=== PATIENT | male | born 1980 | race American Indian/Alaskan Native ===

== ENCOUNTER 2017-10-21 16:56 | Emergency (ER) | payer OTHER ==
[2017-10-21] MEDS ORDERED: ATIVAN IV ONE (17:52)
[2017-10-21] MEDS ORDERED: NACL 0.9% 1000 ML 1,000 ML IV ONE (17:52)
--- NOTE | 2017-10-21 17:52 | Emergency Department Report ---
ED General Adult HPI - General Chief complaint: Seizure Stated complaint: SEIZURE Time Seen by Provider: 10/21/17 17:40 Source: patient Mode of arrival: Ambulatory Limitations: No Limitations - History of Present Illness Initial comments: Patient denies substance abuse denies alcohol denies past medical history, has been having intermittent truncal jerking spells, he says he thinks he can stop them when they start, he has had no loss of consciousness. He has no headache no stiff neck no fever no extremity complaints no jerking no gait problems, he is here for evaluation of intermittent truncal jerking spells off-and-on for a while -: Gradual, days(s), unknown Severity scale (0 -10): 0 Associated Symptoms: denies other symptoms. denies: confusion, chest pain, cough, diaphoresis, fever/chills, headaches, loss of appetite, malaise, nausea/ vomiting, rash, seizure, shortness of breath, syncope, weakness - Related Data Previous Rx's Medication Instructions Recorded Last Taken Type HYDROcodone/APAP 5-325 [[place] 1 each PO Q8HR PRN #14 tablet 07/30/14 Unknown Rx 5-325 mg TAB] Allergies Allergy/AdvReac Type Severity Reaction Status Date / Time diphenhydramine HCl Allergy Hives Verified 10/21/17 17:00 [From [facility]] ED Review of Systems ROS: Stated complaint: SEIZURE Other details as noted in HPI Comment: All other systems reviewed and negative Constitutional: denies: diaphoresis, fever, malaise Eyes: denies: eye discharge, vision change ENT: denies: dental pain, hearing loss, epistaxis Respiratory: denies: shortness of breath, SOB with exertion, SOB at rest, stridor Cardiovascular: denies: chest pain, palpitations, dyspnea on exertion, orthopnea , edema, syncope, paroxysmal nocturnal dyspnea Gastrointestinal: denies: abdominal pain, nausea, vomiting, diarrhea, constipation, hematochezia Neurological: denies: headache, weakness, numbness, paresthesias, confusion, abnormal gait, vertigo Psychiatric: denies: auditory hallucinations, visual hallucinations ED Past Medical Hx - Past Medical History Previous Medical History?: No Additional medical history: Chronic back pain - Surgical History Additional Surgical History: surgery on right middle finger. - Social History Smoking Status: Never Smoker - Medications Home Medications: Home Medications Medication Instructions Recorded Confirmed Last Taken Type HYDROcodone/APAP 5-325 [[place] 1 each PO Q8HR PRN #14 tablet 07/30/14 Unknown Rx 5-325 mg TAB] ED Physical Exam - General Limitations: No Limitations General appearance: alert, in no apparent distress, anxious - Head Head exam: Present: atraumatic, normocephalic - Eye Eye exam: Present: PERRL, EOMI - ENT ENT exam: Present: normal exam, normal orophraynx - Neck Neck exam: Present: normal inspection. Absent: tenderness, meningismus - Respiratory Respiratory exam: Present: normal lung sounds bilaterally. Absent: respiratory distress, wheezes, rales, rhonchi, stridor - Cardiovascular Cardiovascular Exam: Present: regular rate, normal rhythm - GI/Abdominal GI/Abdominal exam: Present: soft. Absent: distended, tenderness, guarding, rebound, rigid, pulsatile mass - Extremities Exam Extremities exam: Present: normal inspection. Absent: full ROM, tenderness, normal capillary refill, pedal edema, joint swelling, calf tenderness - Back Exam Back exam: Present: normal inspection. Absent: CVA tenderness (R), CVA tenderness (L), muscle spasm, paraspinal tenderness, vertebral tenderness - Neurological Exam Neurological exam: Present: alert, oriented X3, CN II-XII intact, normal gait, other (possible myoclonus). Absent: motor sensory deficit - Psychiatric Psychiatric exam: Present: normal affect - Skin Skin exam: Present: warm ED Course Vital Signs 10/21/17 10/21/17 10/21/17 17:01 18:00 18:15 Temperature 98.6 F Pulse Rate 95 H 88 Respiratory 16 16 16 Rate Blood Pressure 150/104 Blood Pressure 142/87 [Right] O2 Sat by Pulse 95 95 96 Oximetry 10/21/17 19:30 Temperature 98 F Pulse Rate 78 Respiratory 16 Rate Blood Pressure Blood Pressure 134/84 [Right] O2 Sat by Pulse 100 Oximetry ED Medical Decision Making - Lab Data Result diagrams: 10/21/17 18:40 10/21/17 18:40 - Radiology Data Radiology results: report reviewed - Medical Decision Making 29-year-old male sometime jerking spell no evidence of seizure patient has seems to have voluntary and no loss of consciousness, he may be having some type of seizure however he does not have loss consciousness or airway problems no exam is normal CT head is normal laboratory studies were unremarkable he will be referred for outpatient EEG and family DrAbe kim [facility] is outpatient follow Critical care attestation.: If time is entered above; I have spent that time in minutes in the direct care of this critically ill patient, excluding procedure time. ED Disposition Clinical Impression: Tremor Disposition: DC-01 TO HOME OR SELFCARE Is pt being admited?: No Condition: Stable Instructions: Parkinson's Disease (ED) Additional Instructions: He'll need to see her regular doctor in follow-up you need to see a neurologist return immediately if new alarming symptoms or call 911 see the doctor listed Referrals: PRIMARY MD BHAVANI [Primary Care Provider] - 3-5 Days JANICE GARSIA MD [Staff Physician] - 3-5 Days Time of Disposition: 22:57
[2017-10-21 18:59] LABS: Basophils % (Auto) 0.4 % (0.0-1.8); Eosinophils # (Auto) 0.1 K/mm3 (0.0-0.4); Eosinophils % (Auto) 1.8 % (0.0-4.3); Hematocrit 45.5 % (35.5-45.6); Hemoglobin 15.3 gm/dl (11.8-15.2); Lymphocytes # (Auto) 1.8 K/mm3 (1.2-5.4); Lymphocytes % (Auto) 25.2 % (13.4-35.0); Mean Corpuscular HGB Conc 34 % (32-34); Mean Corpuscular Hemoglobin 31 pg (28-32); Mean Corpuscular Volume 92 fl (84-94); Monocytes # (Auto) 0.5 K/mm3 (0.0-0.8); Monocytes % (Auto) 7.1 % (0.0-7.3); Platelet Count 273 K/mm3 (140-440); Red Blood Count 4.93 M/mm3 (3.65-5.03); Red Cell Distribution Width 12.7 % (13.2-15.2)
[2017-10-21 19:09] LABS: Alanine Aminotransferase 34 units/L (7-56); Albumin 4.2 g/dL (3.9-5); BUN/Creatinine Ratio 15; Blood Urea Nitrogen 15 mg/dL (9-20); Hemolysis Index 28
--- NOTE | 2017-10-21 19:12 | Cat Scan Report ---
FINAL REPORT EXAM: CT HEAD/BRAIN WO CON HISTORY: Seizure COMPARISON: None available. TECHNIQUE: Axial images obtained skull base through vertex. FINDINGS: No acute intracranial hemorrhage, midline shift or pathologic extra axial fluid collection. Ventricles and cisterns are normal in size and configuration for the patient's age. Nelson-white differentiation preserved. Calvarium grossly intact. Small retention cyst or polyp within the left sphenoid sinus. Otherwise, visualized para-nasal sinuses and mastoid air cells are clear. IMPRESSION: No grossly acute intracranial abnormality.
[2017-10-21 19:41] LABS: Bilirubin,Urine NEG (Negative); Blood,Urine NEG (Negative); Color,Urine Yellow (Yellow); Mucus,Urine FEW /HPF; Protein,Urine <15 mg/dL mg/dL (Negative); WBC,Urine < 1.0 /HPF (0.0-6.0)
[2017-10-21 19:47] LABS: Amphetamine Screen,Urine PRESUMPTIVE NEGATIVE; Benzodiazepines Screen,Urine PRESUMPTIVE NEGATIVE; Cannabinoid Screen,Urine PRESUMPTIVE NEGATIVE; Cocaine Screen,Urine PRESUMPTIVE NEGATIVE; Methadone Screen,Urine PRESUMPTIVE NEGATIVE; Opiate Screen,Urine PRESUMPTIVE NEGATIVE
[2017-10-21 20:56] VITALS: BP 134/84
== END 2017-10-21 23:25 | disposition home or self-care (01) ==
LOC: ED 16:56
DX: R25.1 Tremor, unspecified (principal); G89.29 Other chronic pain
CPT/HCPCS: 36415; 70450; 80053; 80307; 81001; 83735; 85025; 96374; 99284; G0480; J2060; J7030; 80320